=== PATIENT | female | born 1945 | race Two or more races ===

== ENCOUNTER → 2017-04-11 | Outpatient (CLI) | payer MEDICARE ==
--- NOTE | 2017-04-11 18:39 | CT ---
EXAMINATION TYPE: CT brain wo con DATE OF EXAM: 04/11/2017 6:30 PM COMPARISON: NONE HISTORY: Patient complains of dizziness. CT DLP: 1058 mGycm Automated exposure control for dose reduction was used. FINDINGS: Ventricles and sulci are normal for age. There is no mass effect nor midline shift. There is no sign of intracranial hemorrhage. The calvarium appears intact. IMPRESSION: Negative unenhanced head CT scan.
== END | disposition home or self-care (01) ==
LOC: RADCTMAIN 17:41
PROVIDERS: ATTEND Internal Medicine
DX: R42 Dizziness and giddiness (principal)
CPT/HCPCS: 70450

== ENCOUNTER → 2017-04-16 | Outpatient (CLI) | payer MEDICARE ==
--- NOTE | 2017-04-17 13:23 | MM ---
Reason for exam: screening (asymptomatic). Last mammogram was performed 3 years and 4 months ago. History: Patient is postmenopausal. Family history of breast cancer in grandmother at age 80. Physical Findings: A clinical breast exam by your physician is recommended on an annual basis and results should be correlated with mammographic findings. MG Screening Mammo w CAD Bilateral CC and MLO view(s) were taken. Prior study comparison: December 29, 2013, bilateral digital screening mammo w/CAD. August 05, 2011, bilateral digital screening mammo w/CAD. The breast tissue is almost entirely fat. Benign calcifications. No significant changes when compared with prior studies. ASSESSMENT: Benign, BI-RAD 2 RECOMMENDATION: Routine screening mammogram of both breasts in 1 year.
== END | disposition home or self-care (01) ==
LOC: RADMAMWWP 12:34
PROVIDERS: ATTEND Internal Medicine
DX: Z12.31 Encounter for screening mammogram for malignant neoplasm of breast (principal)